=== PATIENT | male | born 1960 | race Caucasian/White ===

== ENCOUNTER 2017-03-12 15:11 | Outpatient (CLI) | payer OTHER ==
--- NOTE | 2017-03-12 18:08 | MRI ---
MR OF THE LUMBAR SPINE WITHOUT CONTRAST 03/12/17 INDICATION: Low back pain for many years with bilateral leg pain. FINDINGS: There is a bony hemangioma within the L3 vertebral level. There is multilevel congenital narrowing of the spinal canal. Conus is seen to terminate at approximately L1. The visualized retroperitoneum, perivertebral soft tissues appear within normal limits. There are latia ateral renal cysts present. At L5-S1, there is a broad based disc bulge with facet hypertrophy and ligamentum hypertrophy inducin g mild central canal narrowing. The disc bulge with facet hypertrophy induces mild left neural forami nal narrowing. At L4-5, a broad based bulge and facet hypertrophy does not induce significant neural foraminal narro wing. At L3-4, there is a broad based bulge and facet joint degenerative change inducing mild central canal narrowing. There is no appreciable neural foraminal narrowing. At L2-3, there is no appreciable neural foraminal narrowing. At L1-2, there is no appreciable neural foraminal narrowing. IMPRESSION: 1. 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 2. Mild broad based bulge and facet hypertrophy at L5-S1 induces a mild left neural foraminal na rrowing. The broad based bulge in addition to the congenital narrowing of the spinal canal induces mi ld central canal narrowing. 3. L3 vertebral body hemangioma. POS: [facility]
== END 2017-03-12 15:12 | disposition home or self-care (01) ==
LOC: TBSIIMAG 15:11
PROVIDERS: ATTEND Neurological Surgery
DX: M47.27 Other spondylosis with radiculopathy, lumbosacral region (principal); M48.061 Spinal stenosis, lumbar region without neurogenic claudication; M51.87 Other intervertebral disc disorders, lumbosacral region
CPT/HCPCS: 72148

== ENCOUNTER 2020-05-29 15:19 | Outpatient (CLI) | payer BC ==
--- NOTE | 2020-05-29 16:05 | RAD ---
EXAM: Cervical spine 3 views: HISTORY: Neck pain COMPARISON: 01/13/2017 FINDINGS: Multilevel disc osteophytosis particularly C5-C6 and C6-C7 showing some progression from prior exam. Portions of C1 and C2 odontoid are obscured on the AP open mouth views. No evidence for acute fracture or dislocation or significant acute osseous process. Alignment:No significant malalignment. No evidence for a focal bone lesion. IMPRESSION: Progressive spondylosis particularly at C5-C6 and C6-C7. No significant new process.
--- NOTE | 2020-05-29 16:06 | RAD ---
Exam: Left shoulder 2 views: HISTORY: Left shoulder pain COMPARISON: None FINDINGS: Mild osteoarthrosis and degenerative change. No evidence for fracture, dislocation, or other significant acute osseous abnormality. IMPRESSION: No significant acute process.
--- NOTE | 2020-05-29 16:07 | RAD ---
Exam:2 views right shoulder HISTORY: Pain. Symptoms x4 days COMPARISON: None FINDINGS: Minimal joint spaces preserved. No fracture or dislocation. There is evidence of previous r ight rotator cuff repair. There is lucency with peripheral sclerosis involving the right greater tuberosity left representing changes from previous rotator cuff tendinopathy. Presents right ribs and lung parenchyma are unremarkable. Mild degenerative change in the right acromioclavicular joint space IMPRESSION: Evidence of previous right rotator cuff repair. Chronic changes in the right humeral head .
== END 2020-05-29 15:20 | disposition home or self-care (01) ==
LOC: BICRAD 15:19
DX: M25.511 Pain in right shoulder (principal); M54.2 Cervicalgia; G54.2 Cervical root disorders, not elsewhere classified; M47.812 Spondylosis without myelopathy or radiculopathy, cervical region; Z98.890 Other specified postprocedural states
CPT/HCPCS: 72040

== ENCOUNTER 2020-12-11 07:05 | Outpatient (CLI) | payer BC | END 2020-12-11 07:06 | disposition home or self-care (01) | LOC: BICULT 07:05 | PROVIDERS: ATTEND Nurse Practitioner Family | DX: R14.0 Abdominal distension (gaseous) (principal); R19.7 Diarrhea, unspecified; R14.3 Flatulence; R19.5 Other fecal abnormalities; R15.2 Fecal urgency; N28.1 Cyst of kidney, acquired | CPT/HCPCS: 76705 ==

== ENCOUNTER 2021-01-01 14:42 | Outpatient (CLI) | payer BC | END 2021-01-01 14:43 | disposition home or self-care (01) | LOC: BICULT 14:42 | PROVIDERS: ATTEND Nurse Practitioner Family | DX: N28.1 Cyst of kidney, acquired (principal) | CPT/HCPCS: 76770 ==